=== PATIENT | male | born 1950 | race Caucasian/White ===

== ENCOUNTER → 2018-08-21 12:42 | Outpatient (CLI) | payer MEDICARE, BC, SELFPAY ==
--- NOTE | 2018-08-21 12:50 | CT_ITS ---
STUDY: LOW DOSE CT LUNG CANCER SCREENING REASON FOR EXAM: Male, 67 years old. Current smoker. 50 pack-year history. RADIATION DOSAGE (If Supplied By Facility): CTDIvol = ( 1.70 ) mGy, DLP = ( 55.52 ) mGycm TECHNIQUE: No contrast was administered. Low dose technique was utilized (average mAS-38 and kVp 120). 1.25 mm axial source images with a slice interval of 1.25-mm were reconstructed in lung windows. 2.5 mm axial source images with a slice interval of 2.5-mm were reconstructed in lung windows. 5.0 mm axial source images with a slice interval of 5.0-mm were reconstructed in soft tissue windows. Nodule measured using lung windows on PACS and/or independent workstation with automated measurement of minimum and maximum diameter. Nodule measurement reported as average diameter rounded to the nearest whole number. Growth is defined as an increase ins size of greater than 1.5 mm. COMPARISON: None. NODULES: Total lung nodules (excluding granulomas): 0 Emphysema: There are diffuse emphysematous changes throughout the lungs. Endobronchial lesion: None Aorta: Minimal atherosclerotic changes of the thoracic aorta without aneurysm. Coronary arteries: There are coronary artery calcifications. Heart: The heart is normal in size. Pulmonary artery: Normal Mediastinal nodes: There is no significant mediastinal lymphadenopathy. Other chest and abdominal findings: There are degenerative changes of the lower thoracic spine. CT/Low Dose CT Lung Screening IMPRESSION: Lung-RADS category 1 - Continue annual screening with LDCT in 12 months. IMPORTANT NOTES FOR USE: ACR Lung-RADS Version 1.0 Assessment Categories Release Date: February 04, 2014 Category: Coded 0-4 bases on nodule(s) with highest degree of suspicion. Negative screen is defined as categories 1 and 2; a positive screen is defined as categories 3 and 4. Category 3 and 4A nodules that are unchanged on interval CT should be coded as category 2, and individuals returned to screening in 12 months. Category 4X: Category 3 or 4 nodules with additional imaging findings that increase the suspicion of lung cancer, such as spiculation, GGN that doubles in size in 1 year, enlarged lymph notes, etc. Category Modifiers: S (significant finding unrelated to lung cancer) and C (prior history of treated lung cancer) may be added to the 0-4 Lung-RADS Electronically Signed: Albert Anders DO at 19:23 EST Tel [phone], Service support ,
== END ==
PROVIDERS: Family Provider Family Medicine; PCP Family Medicine; Referring Provider Family Medicine; Visit Provider Family Medicine
DX: F17.210 Nicotine dependence, cigarettes, uncomplicated (principal); Z12.2 Encounter for screening for malignant neoplasm of respiratory organs
CPT/HCPCS: G0297

== ENCOUNTER → 2019-11-16 | Outpatient (CLI) | payer MEDICARE, BC, SELFPAY ==
--- NOTE | 2019-11-16 12:45 | CT_ITS ---
STUDY: LOW DOSE CT LUNG CANCER SCREENING REASON FOR EXAM: Male, 69 years old. 1PPD X 40+ YEARS. EMPHYSEMA RADIATION DOSAGE (If Supplied By Facility): CTDIvol = ( 1.70 ) mGy, DLP = ( 59.55 ) mGycm TECHNIQUE: No contrast was administered. Low dose technique was utilized (average mAS-38 and kVp 120). 1.25 mm axial source images with a slice interval of 1.25-mm were reconstructed in lung windows. 2.5 mm axial source images with a slice interval of 2.5-mm were reconstructed in lung windows. 5.0 mm axial source images with a slice interval of 5.0-mm were reconstructed in soft tissue windows. Nodule measured using lung windows on PACS and/or independent workstation with automated measurement of minimum and maximum diameter. Nodule measurement reported as average diameter rounded to the nearest whole number. Growth is defined as an increase ins size of greater than 1.5 mm. COMPARISON: 08/21/2018 NODULES: Total lung nodules (excluding granulomas): 0 Emphysema: Hyperinflation with moderate emphysematous changes. Endobronchial lesion: None Aorta: Minimal atherosclerosis and tortuosity. Coronary arteries: Atherosclerotic calcifications of the LAD. Heart: Normal size Pulmonary artery: Unremarkable for unopacified technique. Mediastinal nodes: No mediastinal adenopathy. Other chest and abdominal findings: There are degenerative changes of the thoracic spine with multilevel spondylosis. Atherosclerosis of the upper abdominal aorta including origins of the renal arteries. CT/Low Dose CT Lung Screening IMPRESSION: Lung-RADS category 1 - Continue annual screening with LDCT in 12 months. Stable exam. IMPORTANT NOTES FOR USE: ACR Lung-RADS Version 1.0 Assessment Categories Release Date: February 04, 2014 Category: Coded 0-4 bases on nodule(s) with highest degree of suspicion. Negative screen is defined as categories 1 and 2; a positive screen is defined as categories 3 and 4. Category 3 and 4A nodules that are unchanged on interval CT should be coded as category 2, and individuals returned to screening in 12 months. Category 4X: Category 3 or 4 nodules with additional imaging findings that increase the suspicion of lung cancer, such as spiculation, GGN that doubles in size in 1 year, enlarged lymph notes, etc. Category Modifiers: S (significant finding unrelated to lung cancer) and C (prior history of treated lung cancer) may be added to the 0-4 Lung-RADS Electronically Signed: Tawanda Swanson MD (Brooks) at 11:27 EST , Service support ,
== END | disposition home or self-care (01) ==
LOC: CT 12:42
PROVIDERS: PCP Family Medicine; Referring Provider Family Medicine; Visit Provider Family Medicine
DX: F17.210 Nicotine dependence, cigarettes, uncomplicated (principal); Z12.2 Encounter for screening for malignant neoplasm of respiratory organs
CPT/HCPCS: G0297

== ENCOUNTER 2019-12-04 05:23 | Day surgery (SDC) | payer MEDICARE, BC, SELFPAY ==
--- NOTE | 2019-11-22 09:28 | HP_ITS ---
Intake Vital Signs 11/22/19 BMI 20.0 11/22/19 Height 5 ft 10 in 11/22/19 Weight: 142 lb 11/22/19 BMI 20.3 11/22/19 BP 160/81 H 11/22/19 Blood Pressure Location Rt brachial 11/22/19 Position Sitting 11/22/19 Respiration 18 11/22/19 Pulse 75 11/22/19 Pulse Source Monitor 11/22/19 Temp 98.0 F 11/22/19 Temp Source Oral 11/22/19 Pulse Oximetry (%) 98 11/22/19 Oxygen Delivery Method room air Intake Visit Reasons: Hernia Chief Complaint: right inguinal hernia Cylinder Tester Required: No Accompanied by: Is patient in pain?: No Allergies Sulfa (Sulfonamide Antibiotics) Allergy (Verified 11/22/19 09:10) Angioedema Medications Multivit-Min/FA/Lycopene/Lut [Centrum Silver Tablet] 1 ea PO DAILY 01/15/15 [History Confirmed 11/22/19] tamsulosin 0.4 mg capsule 0.4 mg PO DAILY #30 cap 11/22/19 [Rx Confirmed 11/22/19] PFSH Medical History Arthritis (Acute) History of back problems (Acute) Surgical History (Updated 11/22/19 @ 09:04 by Pauly Hart) History of aortic aneurysm repair (Acute) History of spinal surgery (Acute) Family History (Updated 11/22/19 @ 09:05 by Pauly Hart) Mother Breast cancer Sister Diabetes Social History (Updated 11/22/19 @ 09:28 by Feroz Luz MD) Smoking Status: Current every day smoker alcohol intake: current substance use type: does not use HPI HPI HPI: MOODY BLOUNT, is a 69 M who presents to the office today for HPI HPI Surgical H&P: Yes HPI: MOODY BLOUNT, is a 69 M who presents to the office today for surgical consultation regarding a progressively enlarging right inguinal hernia. The patient is referred by his primary care physician Dr. Caitlyn Monroy and a written copy of my surgical consult recommendations will return to him. The patient has had a severe episode of coughing about 6 months ago. This was a complication of bronchitis complicated by his COPD and emphysema complicated by his ongoing cigarette smoking. It is of note that despite discussion with him today he does not have an interest in ceasing. He noted the right groin bulge. He is still able to reduce it. He has not previously had any abdominal surgery. He has not previously had any inguinal hernia repairs. On November 16, 2019 the patient had a lung CT scan because of his [id number] history of smoking and emphysema. That CT was interpreted as a lung RADS category 1 The patient does have nocturia at least once nightly ROS General General: No weight change, appetite, fatigue, colon cancer, breast cancer or weakness HEENT HEENT: No difficulty swallowing, eye injury, eye surgery, swollen glands or hoarseness Endo Endocrine: No thyroid disease, diabetes mellitus, thyroid cancer, Hair loss, heat intolerance or cold intolerance Skin Skin: No rash or changing moles Breast Breast: No left breast lump, right breast lump, nipple discharge, breast pain, abnormal mammogram, abnormal US or breast enlargement Musc Musculoskeletal: Yes back problems and arthritis; no rheumatoid arthritis, gout or joint pain Cardio Cardiovascular: No murmur, pacemaker, heart disease, atrial fibrillation, high blood pressure, heart attack, heart stent, palpitations, shortness of breat with exertion or chest pain Psych Psychiatric: No depression, anxiety or hearing voices Resp Respiratory: No shortness of breath, No sleep apnea, Yes cough, No COPD, No asthma, No emphysema, No wheezing Gastro Gastrointestinal: No abdominal pain, No nausea or vomiting, No diarrhea, No constipation, No blood in stool, No acid reflux, No hemorrhoids, No ulcers, No gallbladder problem, No black,tarry stools Karl Hematologic: No blood thinners, No blood disorders, No bleeding, No anemia, No blood clots Neuro Neurologic: No system reviewed and no additional complaints, except as docu, No as per HPI, No abnormal walking, No abnormal hearing, No abnormal movements, No abnormal speech, No behavioral changes, No burning sensations, No confusion, No seizure-like activity, No unsteadiness, No dizziness, No localized weakness, No frequent falls, No headache(s), No lack of coordination, No loss of vision, No memory loss, Yes numbness, No other visual disturbances, No radiating pain, No restless legs, No sensory deficit, No fainting, Yes tingling, No tremor(s), No weakness, No other Exam Const General: cooperative, comfortable, no acute distress Nutritional Appearance: average body habitus Orientation: alert, awake Other: Patient appears older than stated age Chest Breast Palpation: No nipple discharge Other: Notably increased anterior posterior diameter Resp Effort & Inspection: normal respiratory effort Auscultation: clear to auscultation bilaterally Cardio Rate: regular rate Rhythm: regular rhythm Heart Sounds: no murmurs GI Palpation: soft, no hepatosplenomegaly Auscultation: normal bowel sounds Other: Testicles are descended without mass, left groin has a palpable external ring. The right groin has an obvious sizable inguinal hernia. It is still reducible. Skin General: no rashes or lesions noted Neuro Cognition: normal cognition Extrem General: no calf tenderness bilaterally Psych Affect: normal affect Assessment & Plan Problems 1. Inguinal hernia of right side without obstruction or gangrene K40.90 Plan I have discussed various treatment options for the patient. He has ongoing tobacco use and COPD. He has chronic cough. I believe that he is at increased risk for hernia repair failure and recurrence. I would prefer performing a laparoscopic right inguinal hernia repair. I would be better able to oversized the mesh if indicated. I have discussed the technique, benefit, risk, alternatives. As noted I can palpate a slightly open left inguinal ring. We have discussed the potential proceeding on with a laparoscopic left inguinal hernia repair at the same setting if one is identified laparoscopically. He is aware of the technique, benefit, risks, alternatives. It has been compared and contrasted to open procedures with and without mesh. I have vigorously encouraged the patient to cease his tobacco use Because of his nocturia x1 we will initiate him on tamsulosin 0.4 mg nightly preoperatively. He is aware of the potential for postoperative urinary retention. He has had an opportunity to ask and have questions answered. We will schedule and proceed at his discretion. Cc: Dr. Caitlyn Luz M.D., F.A.C.S. Medications New: tamsulosin (Flomax) 0.4 mg PO DAILY 30 caps 0RF Coding Level of Care Code 53987 Diagnoses Inguinal hernia of right side without obstruction or gangrene K40.90 11/22/19 0928 <Electronically signed by Feroz rogers MD> Date _ Feroz Luz MD I have re-examined the patient. There are no clinical changes since date of exam.
--- NOTE | 2019-11-29 13:16 | EKG12_ITS ---
Test Reason : PRE OP Blood Pressure : / mmHG Vent. Rate : 066 BPM Atrial Rate : 066 BPM P-R Int : 182 ms QRS Dur : 080 ms QT Int : 370 ms P-R-T Axes : 077 055 076 degrees QTc Int : 387 ms Normal sinus rhythm Normal ECG Confirmed by ESDRAS SANDOVAL, KIAN ([id number]), editor news JESUS OLSON ([id number]) on 12/03/2019 2:04:42 PM Referred By: Feroz Luz Confirmed By:ASHLEE DEWITT MD
[2019-11-29 14:42] LABS: Hematocrit 45.8 % (40-54); Mean Corp Hgb Conc 32.8 g/dL (32-36); Mean Corpuscular Hgb 30.2 pg (27.0-32.0); Mean Corpuscular Volume 92.3 fL (80-94); Mean Platelet Vol. 9.4 fl (6.2-12.0); Platelet Count 257 K/mm3 (150-450); RBC Distribution Width CV 13.5 % (11.6-14.6); RBC Distribution Width SD 45.4 fl (35.1-43.9); Red Blood Count 4.96 M/mm3 (4.6-6.2); White Blood Count 9.7 K/mm3 (4.4-11.0)
[2019-11-29 15:07] LABS: Anion Gap 4 (5-15); BUN 18 mg/dL (7-18); BUN/Creat Ratio 21.1 RATIO (10-20); Calcium,Total 9.2 mg/dL (8.5-10.1); Chloride 109 mmol/L (98-107); Creatinine, Serum 0.86 mg/dL (0.70-1.30); EST Glomerular Filtration Rate 95 mL/min (>60); Est Glom Filt Rate - Afr Amer 115 mL/min (>60); Glucose 82 mg/dL (74-106); Potassium 4.1 mmol/L (3.5-5.1); Sodium Level 140 mmol/L (136-145)
[2019-12-04 05:54] VITALS: BP 103/66; PULSE 74; RESP 14; TEMP 37.4; O2SAT 97
--- NOTE | 2019-12-04 06:00 | PCM.DC.GS ---
Discharge Diet: Light diet - advance as tolerated - if you have questions about your diet instructions, please talk to you doctor. Discharge Activity: May Not Drive - for 3-5 days or while taking narcotic pain medicine. May shower in (days): 1 Lifting Restrictions: 10 pounds Call your doctor if your incision/area has: Continuous Slow Oozing, Sudden Increased Bleeding, Increased Pain/ Swelling, Increased Redness, Foul Smelling Discharge Call your doctor if you observe: Fever of 101 or Higher Suture Line Care: Avoid Pulling/Pushing, Avoid Pinching/Bending Additional Dressing/Incision Instructions:: Change or remove dressing in 4 days. Leave steri-strips in place for 1 week. Allergies/Adverse Reactions: Allergies Sulfa (Sulfonamide Antibiotics) Allergy (Verified 12/04/19 05:53) Angioedema Medications to take at Discharge Multivit-Min/FA/Lycopene/Lut [Centrum Silver Tablet] 1 ea PO DAILY 01/15/15 Loratadine 10 mg PO DAILY 11/27/19 Naproxen Sod/Diphenhydramine [Aleve Pm Caplet] 1 ea PO QHS PRN PRN 11/27/19 Tamsulosin HCl 0.4 mg PO QHS 11/27/19 Orders to be completed after discharge: 12 Lead EKG [[facility]] Time Frame: 11/27/19, Facility: [facility], Location: Cardiovascular Services Basic Metabolic Profile (BMP) Time Frame: 11/27/19, Facility: [facility], Location: Laboratory CBC-Complete Blood Cnt No Diff Time Frame: 11/27/19, Facility: [facility], Location: Laboratory Primary Care Physician: Caitlyn Monroy MD [Primary Care Provider] - Test Results: Test results from this visit will be discussed in further detail at your follow-up appointment, if applicable. Please Follow Up With: Feroz Luz MD - [phone] When: Call to make an appointment to be seen in about 10 days.
[2019-12-04] MEDS: Lactated Ringers 1,000 ML 100 ML IV (06:05)
[2019-12-04] MEDS: Cefazolin 2 GM in 0.9% Normal Saline 100 ML IV (07:15)
[2019-12-04] MEDS: Bupivacaine Mpf 0.5% 30 ML VIAL (08:21)
--- NOTE | 2019-12-04 08:26 | OP.PCM_ITS ---
Problem List (1) Inguinal hernia of right side without obstruction or gangrene Status: Acute Report of Operation Date of Procedure: 12/04/19 Pre-Operative Diagnosis: Right inguinal hernia Post-Operative Diagnosis: Direct and indirect right inguinal hernias Surgery/Procedure Performed:: Laparoscopic right inguinal herniorrhaphy. Bard 3D max extra-large right. Lot number [id number]. Reference #[id number]. Expiry da te 06/06/2024 Description of Surgical Findings:: Timeout and informed consent was obtained. 69 old gent was taken out from placement table underwent general endotracheal intubation anesthesia. Ancef 2 g given intravenously preoperatively. The abdomen sterilely prepped and draped. 0.5% Marcaine was used as local anesthetic. Skin sites were pre-anesthetized. Throughout the procedure total 30 cc was used. A infraumbilical incision was created holding sutures of 0 Vicryl placed varies needle inserted could not get insufflation so then I again direct access to the peritoneum opened the peritoneum and put the telemeter trocar. The abdomen was insufflated with CO2 to a pressure of 10 mm direct pressure. 10 mm laparoscope inserted the abdomen was carefully inspected no evidence of any trocar related injuries. Under direct physician 5 mm ports were placed in the right left lower quadrant. The left groin was noted to be solid. The right groin had evidence of both a large direct right inguinal hernia and a smaller indirect right inguinal hernia. A ileal nerve block was performed with the local under laparoscopic visualization. The peritoneum superior lateral to the internal ring was incised carried medially. The peritoneum was then aggressively dissected free. The direct space indirect area and femoral area completely dissected free. A extra-large Bard 3D max mesh was placed so as to cover the defect area. I was able to position it to generously cover the entire right groin area. Excellent positioning was achieved. It was secured laterally superiorly and medially with secure strap. I was very pleased with the positioning. The peritoneum was then approximated to itself using secure strap and hemo-lock clips. Complete obliteration of the mesh was achieved. Trochars were removed under visualization the abdomen was allowed to deflate of the CO2 the fascia at the umbilicus approximated with interrupted 0 Vicryl [id number] suture skin edges approximated opted for Monocryl subdermal stitches Steri-Strips and Telfa and OpSite dressings applied sponge and instrument and needle counts were reported to the surgeon to be correct Specimens none. Drains none. Blood loss minimal. Feroz Luz M.D., F.A.C.S. Type of Anesthesia:: General Anesthesiologist: Trevor Almaguer
[2019-12-04 08:37] VITALS: BP 103/66; BP 125/75; PULSE 64; RESP 14; TEMP 36.4; O2SAT 97
[2019-12-04 08:45] VITALS: BP 103/66; BP 133/74; PULSE 60; RESP 16; O2SAT 93
[2019-12-04 09:01] VITALS: BP 103/66; BP 133/73; PULSE 68; RESP 16; TEMP 36.5; O2SAT 98
[2019-12-04 09:44] VITALS: BP 103/66
[2019-12-04] MEDS: HYDROcodone Bitartrate/Apap 5/325 Tablet PO (10:20)
[2019-12-04 10:28] VITALS: BP 103/66; BP 139/77; PULSE 60; RESP 16; TEMP 36.4; O2SAT 97
== END 2019-12-04 10:46 | disposition home or self-care (01) ==
LOC: SDC 05:24 → AC 05:25
PROVIDERS: PCP Family Medicine; Referring Provider Surgery; Visit Provider Surgery
PROC: (CPT 49650; principal; 2019-12-04 06:55)
DX: K40.90 Unilateral inguinal hernia, without obstruction or gangrene, not specified as recurrent (principal); M19.90 Unspecified osteoarthritis, unspecified site; J43.9 Emphysema, unspecified; F17.210 Nicotine dependence, cigarettes, uncomplicated
CPT/HCPCS: 00840; 49650; 36415; 80048; 85027; 93005; J7120; C1781; J2405

== ENCOUNTER → 2020-10-31 11:33 | Outpatient (CLI) | payer MEDICARE, BC, SELFPAY ==
[2020-10-31 15:54] LABS: Cholesterol 190 mg/dL (200); High Density Lipoprotein 87 mg/dL; PSA,Total - Annual Screen 3.56 ng/mL (0.00-4.00); Triglycerides 51 mg/dL; Very Low Density Lipoprotein 10 mg/dL (5-40)
== END ==
PROVIDERS: PCP Family Medicine; Referring Provider Family Medicine; Visit Provider Family Medicine
DX: Z00.00 Encounter for general adult medical examination without abnormal findings (principal); Z12.5 Encounter for screening for malignant neoplasm of prostate
CPT/HCPCS: 36415; 80061; 84153; G0103

== ENCOUNTER → 2020-11-17 14:45 | Outpatient (CLI) | payer MEDICARE, BC, SELFPAY ==
--- NOTE | 2020-11-17 14:46 | CT_ITS ---
STUDY: LOW DOSE CT LUNG CANCER SCREENING REASON FOR EXAM: Male, 70 years old. Long history of smoking. Screening for lung cancer. RADIATION DOSAGE (If Supplied By Facility): CTDIvol = ( 2.01 ) mGy, DLP = ( 76.25 ) mGycm TECHNIQUE: No contrast was administered. Low dose technique was utilized (average mAS-38 and kVp 120). 1.25 mm axial source images with a slice interval of 1.25-mm were reconstructed in lung windows. 2.5 mm axial source images with a slice interval of 2.5-mm were reconstructed in lung windows. 5.0 mm axial source images with a slice interval of 5.0-mm were reconstructed in soft tissue windows. Nodule measured using lung windows on PACS and/or independent workstation with automated measurement of minimum and maximum diameter. Nodule measurement reported as average diameter rounded to the nearest whole number. Growth is defined as an increase ins size of greater than 1.5 mm. COMPARISON: 11/16/2019 NODULES: There is hyperinflation of the lungs consistent with chronic obstructive lung disease (COPD). Mild emphysema seen in both lungs more prominent in the upper lobes. There are no suspicious lung nodules There are no endobronchial lesions. There is no demonstrated pleural abnormality. Normal heart and pericardium. Normal mediastinum. Normal hilar regions. Normal unenhanced pulmonary arteries. Normal aorta arch and descending thoracic aorta. Normal osseous structures. There is a single stone in the gallbladder measures approximately [address]/Low Dose CT Lung Screening IMPRESSION: Lung-RADS category 2. COPD and emphysema unchanged from yesterday. Cholelithiasis. Recommendation: Routine screening CT scan in one year. IMPORTANT NOTES FOR USE: ACR Lung-RADS Version 1.0 Assessment Categories Release Date: February 04, 2014 Category: Coded 0-4 bases on nodule(s) with highest degree of suspicion. Negative screen is defined as categories 1 and 2; a positive screen is defined as categories 3 and 4. Category 3 and 4A nodules that are unchanged on interval CT should be coded as category 2, and individuals returned to screening in 12 months. Category 4X: Category 3 or 4 nodules with additional imaging findings that increase the suspicion of lung cancer, such as spiculation, GGN that doubles in size in 1 year, enlarged lymph notes, etc. Category Modifiers: S (significant finding unrelated to lung cancer) and C (prior history of treated lung cancer) may be added to the 0-4 Lung-RADS Electronically Signed: Susana Saavedra MD at 7:15 EST Tel , Service support ,
== END ==
PROVIDERS: PCP Family Medicine; Referring Provider Family Medicine; Visit Provider Family Medicine
DX: F17.210 Nicotine dependence, cigarettes, uncomplicated (principal); Z12.2 Encounter for screening for malignant neoplasm of respiratory organs
CPT/HCPCS: 71271

== ENCOUNTER 2021-11-25 13:40 | Outpatient (CLI) | payer MEDICARE, BC, SELFPAY ==
--- NOTE | 2021-11-25 13:45 | CT_ITS ---
STUDY: LOW DOSE CT LUNG CANCER SCREENING REASON FOR EXAM: Male, 71 years old. COPD. Patient smoked 1 pack per day for 40 years. RADIATION DOSAGE (If Supplied By Facility): CTDIvol = ( 2.01 ) mGy, DLP = ( 71.73 ) mGycm TECHNIQUE: No contrast was administered. Low dose technique was utilized (average mAS-38 and kVp 120). 1.25 mm axial source images with a slice interval of 1.25-mm were reconstructed in lung windows. 2.5 mm axial source images with a slice interval of 2.5-mm were reconstructed in lung windows. 5.0 mm axial source images with a slice interval of 5.0-mm were reconstructed in soft tissue windows. Nodule measured using lung windows on PACS and/or independent workstation with automated measurement of minimum and maximum diameter. Nodule measurement reported as average diameter rounded to the nearest whole number. Growth is defined as an increase ins size of greater than 1.5 mm. COMPARISON: Comparison is made with prior examination dated 11/17/2020. NODULES: No suspicious nodules are seen. Emphysema: Hyperinflation. Emphysematous changes with centrilobular emphysema more prominent in the upper lobes. Endobronchial lesion: None Aorta: Minimal atherosclerotic calcification of the aortic arch. Coronary arteries: Coronary artery calcification. Heart: Unremarkable Pulmonary artery: Unremarkable Mediastinal nodes: Unremarkable Other chest and abdominal findings: CT/Low Dose CT Lung Screening IMPRESSION: Lung-RADS category 2 - Continue annual screening with LDCT in 12 months. IMPORTANT NOTES FOR USE: ACR Lung-RADS Version 1.1 Assessment Categories Release Date: 2018 Category: Coded 0-4 bases on nodule(s) with highest degree of suspicion. Negative screen is defined as categories 1 and 2; a positive screen is defined as categories 3 and 4. Category 3 and 4A nodules that are unchanged on interval CT should be coded as category 2, and individuals returned to screening in 12 months. Category 4X: Category 3 or 4 nodules with additional imaging findings that increase the suspicion of lung cancer, such as spiculation, GGN that doubles in size in 1 year, enlarged lymph notes, etc. Category Modifiers: S (significant finding unrelated to lung cancer) Electronically Signed: Umberto Carlton MD at 15:10 EST ,
== END 2021-11-25 23:59 | disposition home or self-care (01) ==
LOC: CT 13:42
PROVIDERS: PCP Family Medicine; Referring Provider Family Medicine; Visit Provider Family Medicine
DX: J44.1 Chronic obstructive pulmonary disease with (acute) exacerbation (principal); Z87.891 Personal history of nicotine dependence
CPT/HCPCS: 71271

== ENCOUNTER 2023-01-04 14:41 | Outpatient (CLI) | payer MEDICARE, BC, SELFPAY ==
[2023-01-04 19:04] LABS: ALB/GLOB Ratio 1.1 RATIO (0.9-2.4); AST(SGOT) 31 U/L (15-37); Alanine Aminotransfer ALT/SGPT 38 U/L (16-61); Albumin, Serum 3.8 g/dL (3.2-5.0); Alkaline Phosphatase 55 U/L (45-117); Anion Gap 8 (5-15); BUN 19 mg/dL (7-18); BUN/Creat Ratio 24.5 RATIO (10-20); Calcium,Total 8.9 mg/dL (8.5-10.1); Chloride 106 mmol/L (98-107); Creatinine, Serum 0.78 mg/dL (0.70-1.30); EST Glomerular Filtration Rate 105 mL/min (>60); Est Glom Filt Rate - Afr Amer 127 mL/min (>60); Globulin 3.6 g/dL (2.2-4.2); Glucose 71 mg/dL (74-106); PSA,Total - Annual Screen 3.67 ng/mL (0.00-4.00); Potassium 3.9 mmol/L (3.5-5.1); Protein, Total 7.4 g/dL (6.4-8.2); Sodium Level 138 mmol/L (136-145); Thyroid Stim Hormone (TSH) 1.88 uIU/mL (0.358-3.74)
== END 2023-01-04 23:59 | disposition home or self-care (01) ==
LOC: MFPLAB 14:43
PROVIDERS: PCP Family Medicine; Referring Provider Family Medicine; Visit Provider Family Medicine
DX: Z00.00 Encounter for general adult medical examination without abnormal findings (principal)
CPT/HCPCS: 36415; 80053; 84153; 84443; G0103

== ENCOUNTER → 2023-01-13 | Outpatient (CLI) | payer MEDICARE, BC, SELFPAY ==
--- NOTE | 2023-01-13 15:55 | CT_ITS ---
STUDY: LOW DOSE CT LUNG CANCER SCREENING REASON FOR EXAM: Male, 72 years old. SCREENING. The patient smoked 1 pack per day for 50 years. RADIATION DOSAGE (If Supplied By Facility): CTDIvol = ( 2.01 ) mGy, DLP = ( 72.48 ) mGycm TECHNIQUE: No contrast was administered. Low dose technique was utilized (average mAS-38 and kVp 120). 1.25 mm axial source images with a slice interval of 1.25-mm were reconstructed in lung windows. 2.5 mm axial source images with a slice interval of 2.5-mm were reconstructed in lung windows. 5.0 mm axial source images with a slice interval of 5.0-mm were reconstructed in soft tissue windows. COMPARISON: Comparison is made with prior study dated November 25, 2021. NODULES: No suspicious nodules are seen. Emphysema: Hyperinflation and emphysematous changes with centrilobular emphysema in the upper lobes. Endobronchial lesion: None Aorta: Mild atherosclerotic calcific plaques of the aortic arch. CORONARY ARTERIES: Coronary artery calcification is seen. Heart: Unremarkable Pulmonary artery: Unremarkable Mediastinal nodes: Small benign-appearing mediastinal lymph nodes. Other chest and abdominal findings: CT/Low Dose CT Lung Screening IMPRESSION: Lung-RADS category 2 - Continue annual screening with LDCT in 12 months. IMPORTANT NOTES FOR USE: ACR Lung-RADS Version 1.1 Assessment Categories Release Date: 2018 Category: Coded 0-4 bases on nodule(s) with highest degree of suspicion. Negative screen is defined as categories 1 and 2; a positive screen is defined as categories 3 and 4. Category 3 and 4A nodules that are unchanged on interval CT should be coded as category 2, and individuals returned to screening in 12 months. Category 4X: Category 3 or 4 nodules with additional imaging findings that increase the suspicion of lung cancer, such as spiculation, GGN that doubles in size in 1 year, enlarged lymph notes, etc. Category Modifiers: S (significant finding unrelated to lung cancer) Electronically Signed: Umberto Carlton MD at 14:21 EDT ,
== END | disposition home or self-care (01) ==
LOC: CT 15:46
PROVIDERS: PCP Family Medicine; Referring Provider Family Medicine; Visit Provider Family Medicine
DX: Z87.891 Personal history of nicotine dependence (principal)
CPT/HCPCS: 71271

== ENCOUNTER → 2024-01-06 | Outpatient (CLI) | payer MEDICARE, BC, SELFPAY | END | disposition home or self-care (01) | LOC: MTLAB 11:42 | PROVIDERS: PCP Family Medicine; Referring Provider Family Medicine; Visit Provider Family Medicine | DX: Z12.5 Encounter for screening for malignant neoplasm of prostate (principal) | CPT/HCPCS: 36415; 84153; G0103 ==

== ENCOUNTER → 2024-01-23 | Outpatient (CLI) | payer MEDICARE, BC, SELFPAY ==
--- NOTE | 2024-01-23 17:41 | CT_ITS ---
STUDY: LOW DOSE CT LUNG CANCER SCREENING REASON FOR EXAM: Male, 73 years old. screening for lung cancer RADIATION DOSAGE (If Supplied By Facility): CTDIvol = ( 2.27 ) mGy, DLP = ( 74.95 ) mGycm TECHNIQUE: No contrast was administered. Low dose technique was utilized (average mAS-38 and kVp 120). 1.25 mm axial source images with a slice interval of 1.25-mm were reconstructed in lung windows. 2.5 mm axial source images with a slice interval of 2.5-mm were reconstructed in lung windows. 5.0 mm axial source images with a slice interval of 5.0-mm were reconstructed in soft tissue windows. COMPARISON: 01/13/2023 Emphysema: Mild bilateral apical scarring. Mild emphysema. No noncalcified nodule or mass. Endobronchial lesion: There is a small (5 mm) endobronchial lesion within the medial branching bronchus arising from the proximal apicoposterior bronchus on image 83 and 84. Bronchoscopy may be useful. Aorta: Some calcified plaque in the aortic arch but no thoracic aortic aneurysm. CORONARY ARTERIES: Coronary artery calcification is seen. Heart: No cardiomegaly. Pulmonary artery: Normal Mediastinal nodes: Normal Other chest and abdominal findings: Mild bilateral gynecomastia. CT/Low Dose CT Lung Screening IMPRESSION: Lung-RADS category 4A - Screening at 3 months with LDCT or evaluation with PET/CT may be used. IMPORTANT NOTES FOR USE: ACR Lung-RADS Version 1.1 Assessment Categories Release Date: 2018 Category: Coded 0-4 bases on nodule(s) with highest degree of suspicion. Negative screen is defined as categories 1 and 2; a positive screen is defined as categories 3 and 4. Category 3 and 4A nodules that are unchanged on interval CT should be coded as category 2, and individuals returned to screening in 12 months. Category 4X: Category 3 or 4 nodules with additional imaging findings that increase the suspicion of lung cancer, such as spiculation, GGN that doubles in size in 1 year, enlarged lymph notes, etc. Category Modifiers: S (significant finding unrelated to lung cancer) Electronically Signed: Germán You MD at 0:27 EDT ,
== END | disposition home or self-care (01) ==
LOC: CT 17:38
PROVIDERS: PCP Family Medicine; Referring Provider Family Medicine; Visit Provider Family Medicine
DX: Z12.2 Encounter for screening for malignant neoplasm of respiratory organs (principal); F17.210 Nicotine dependence, cigarettes, uncomplicated
CPT/HCPCS: 71271

== ENCOUNTER → 2024-09-04 | Outpatient (CLI) | payer MEDICARE, BC, SELFPAY ==
[2024-09-05 12:09] LABS: PSA, Free 1.17 ng/mL; PSA, Free % 15.6 % (.)
== END | disposition home or self-care (01) ==
LOC: LAB 10:12
PROVIDERS: PCP Family Medicine; Referring Provider Urology; Visit Provider Urology
DX: R97.20 Elevated prostate specific antigen [PSA] (principal)
CPT/HCPCS: 36415; 84153; 84154

== ENCOUNTER → 2025-02-05 | Outpatient (CLI) | payer MEDICARE, BC, SELFPAY ==
--- NOTE | 2025-02-05 16:39 | CT_ITS ---
PROCEDURE: LOW DOSE CT LUNG SCREENING (CTLUNGSCREEN), 02/05/2025 REASON FOR EXAM: HX NICOTINE DEPENDENCE TECHNIQUE: Low dose CT (LDCT) chest was performed without contrast. Multiplanar reformats and MIP reconstructions were generated. RADIATION DOSE SUMMARY: CTDlvol: 3.02 mGy DLP: 115.13 mGycm One or more dose reduction techniques were used (e.g., Automated exposure control, adjustment of the mA and/or kV according to patient size, use of iterative reconstruction technique). COMPARISON: 01/23/2024 FINDINGS: Note that evaluation of the vasculature, jadon, and soft tissues is limited in the absence of IV contrast. Heart/pericardium: Moderate multivessel coronary atherosclerosis and/or stents. Trace aortic annular calcification. Aorta: Trace atherosclerosis.. Pulmonary arteries: Unremarkable. Lymph nodes: Unremarkable. Lungs/pleura: Emphysema. New spiculated nodule in the medial subpleural superior segment of the RIGHT lower lobe measuring 2.8 x 1.8 cm (series 2, image 102). New RIGHT apical nodules up to 9 x 7 mm (images 42 and 44). New 5 x 5 mm LEFT apical nodule (image 45). New subpleural LEFT upper lobe nodule, 6 x 3 mm (image 50). New spiculated nodule in the RIGHT middle lobe measuring 2.9 x 1.5 cm (image 164). Fissural likely intrapulmonary lymph node on the LEFT. New RIGHT upper lobe nodule measuring 6 x 6 mm (image 109). Similar posterior subpleural RIGHT lower lobe nodule measuring 6 x 5 mm (image 153). Airways: Unremarkable. Chest wall: Gynecomastia.. Similar punctate metallic foci in the RIGHT posterolateral meningeal lower chest wall. Upper abdomen: Similar 1.2 cm hypodensity in the LEFT hepatic dome, borderline too small to characterize. Cholelithiasis. Colonic diverticulosis. Musculoskeletal: Demineralization. Mild spondylosis. Mild scoliosis may be positional.. CT/Low Dose CT Lung Screening IMPRESSION: 1. Emphysema with multiple new nodules up to 2.3 cm average axial diameter, lar gest two with spiculation which is a suspicious feature. Tissue sampling should be considered. Additional management options as below. 2. Lung-RADS category: 4XS (very suspicious, >15% chance of malignancy); recomm end ct chest with contrast, PET/CT, and/or tissue sampling if solid component ?8 mm. For new large nodules that develop on an [facility] screening CT, a 1 month LDCT may be recommended to address potentially infectious or inflammatory conditions. 3. Other clinically significant or potentially significant non-lung cancer find ings: Coronary arterial calcification moderate or severe. 4. Additional description as above. Recommendations per [employer]. Lung CT Screening Reporting and Data System (Lung-RADS) v. 202 Reading Location: [id number]
== END | disposition home or self-care (01) ==
LOC: CT 16:37
PROVIDERS: PCP Family Medicine; Referring Provider Internal Medicine Pulmonary Disease; Visit Provider Internal Medicine Pulmonary Disease
DX: Z87.891 Personal history of nicotine dependence (principal)
CPT/HCPCS: 71271

== ENCOUNTER 2025-02-19 09:58 | Outpatient (CLI) | payer MEDICARE, BC, SELFPAY ==
--- NOTE | 2025-02-19 10:30 | PET_ITS ---
PROCEDURE: PET/CT TUMOR BASE -THIGH INIT 02/19/2025 REASON FOR EXAM: 74 y/o M with SOLITARY PULMONARY NODULE. Multiple new or increased lung nodule seen CT examination 02/05/2025. TECHNIQUE: Following the intravenous administration of radionucleotide, image acquisition on a dedicated PET/CT unit was performed at one hour post injection. A preliminary CT study encompassing the Skull base, neck, chest, abdomen, pelvis, and proximal thighs was performed for purposes of attenuation correction and anatomic localization. The proximal thighs were also included. The patient's blood glucose level was 119 mg/dL (allowable range: 50-180 mg/dL). RADIOPHARMACEUTICAL: 14.05 mCi 18F-FDG (Fluorodeoxyglucose F18) IV was injected into he patient. RADIATION DOSE SUMMARY: Effective Dose: Approximately 7 mSv for a standard whole-body PET scan Organ Doses: Varies by organ, with higher doses typically to the bladder, liver, and brain COMPARISON: COMPARISON FROM CT, PET OR OTHER PERTINENT EXAMS: Chest CT of 02/05/2025.. FINDINGS: Physiologic uptake: There may be expected metabolic uptake within the brain, tongue and floor of the mouth and larynx/vocal cords, heart, jadon (many normal individuals have hilar uptake in less than 3 nodes with mildly avid hilar nodes less than 2.7 SUV), liver and spleen, system, and GI tract and symmetric muscle uptake. FDG AVID AND NON-AVID LESIONS. Reported avid SUV values (g/mL*) are maximum SUV. NECK: There are no significant neck abnormalities. CHEST: Chest wall- There are no significant chest wall abnormalities. Axilla- There are no significant axillary abnormalities. Lung parenchyma- Many of the concerning bilateral lung nodules seen on the recent chest CT show hypermetabolic activity, highly concerning for malignancy. A very medial right lower lobe (also retrocardiac) nodule with SUV max of 6.2; A lateral left upper lobe nodule with SUV max of 4.7; A medial left upper lobe nodule with SUV max of 5.0; Posteromedial right lower lobe nodule with SUV max of 4.5. Mediastinum- There are no significant hilar or mediastinal adenopathy. Pleura- There are no significant pleural abnormalities. ABDOMEN: Cholelithiasis. Stomach- No significant abnormalities. Liver- No significant abnormalities. Spleen- No significant abnormalities. Pancrease- No significant abnormalities. Kidneys- No significant abnormalities. Bowel- Normal bowel activity. Spine- No significant abnormalities. Prominent arterial calcification is seen; no evidence of abdominal aortic aneurysm. PELVIS: Bowel- Normal physiologic bowel activity is identified. Mild sigmoid diverticulosis is noted. Masses- There are no pelvic masses. Bones- Prominent degenerative changes of the spine are seen. With the use of bone window settings, there are no osteolytic or osteoblastic lesions. There are no FDG avid lesions within the visualized portion of the axial skeleton. PET/PET/CT Tumor Base -Thigh Init IMPRESSION: FDG avid- Bilateral pulmonary hypermetabolic lung nodules. Differential diagnosis includ es multifocal lung carcinoma and/or metastatic disease. Other: Mild sigmoid diverticulosis. Cholelithiasis. Please note the low-dose CT scan was performed to facilitate PET image reconstr uction and anatomic localization and does not replace a diagnostic CT. Any diagnostic CT requested and performed at the time of the PET will be reported separately. Reading Location: [place] [id number]
[2025-02-19 15:18] LABS: PSA,Total- Diagnostic 6.39 ng/mL (0.00-4.00)
== END 2025-02-19 23:59 | disposition home or self-care (01) ==
PROVIDERS: PCP Family Medicine; Referring Provider Urology; Visit Provider Internal Medicine Pulmonary Disease
DX: R91.1 Solitary pulmonary nodule (principal); J44.9 Chronic obstructive pulmonary disease, unspecified; R97.20 Elevated prostate specific antigen [PSA]; F17.210 Nicotine dependence, cigarettes, uncomplicated
CPT/HCPCS: 36415; 78815; 84153; A9552

== ENCOUNTER → 2025-04-18 | Outpatient (CLI) | payer MEDICARE, BC, SELFPAY ==
--- NOTE | 2025-04-18 09:46 | CT_ITS ---
EXAM: CT Chest Without Intravenous Contrast CLINICAL INDICATION: SOLITARY PULM NODULE TECHNIQUE: Axial computed tomography images of the chest without intravenous contrast. This CT exam was performed using one or more of the following dose reduction techniques: automated exposure control, adjustment of the mA and/or kV according to patient size, and/or use of iterative reconstruction technique. COMPARISON: PET-CT 02/19/2025, CT low-dose chest 02/05/25 FINDINGS: LUNGS AND PLEURAL SPACES: Lung emphysema. Redemonstration of spiculated nodule in the medial right lower lobe measuring up to 2 8 cm with a decreased density. Stable 5 mm nodule of the lateral left upper lobe. Stable 5 mm of the central right upper lobe. Stable 4 mm nodule of the central right upper lobe. New 6 mm spiculated nodule of the superior segment of the left lower lobe. 3 mm nodule of the right middle lobe, previously 6 mm. No consolidation. No significant effusion. No pneumothorax. HEART: Unremarkable. No cardiomegaly. No significant pericardial effusion. No significant coronary artery calcifications. BONES/JOINTS: Unremarkable. No acute fracture. SOFT TISSUES: Unremarkable. VASCULATURE: Unremarkable. No thoracic aortic aneurysm. LYMPH NODES: Unremarkable. No enlarged lymph nodes. CT/Chest without Contrast IMPRESSION: Mixed improvement since the prior exam on 02/05/2025. Some pulmonary nodules h ave decreased in size or remained stable. However, a new spiculated nodule of the superior segment of the left lower lobe was noted. Reading Location: [facility]
== END | disposition home or self-care (01) ==
PROVIDERS: Referring Provider Internal Medicine Pulmonary Disease; Visit Provider Internal Medicine Pulmonary Disease
DX: R91.1 Solitary pulmonary nodule (principal); J44.9 Chronic obstructive pulmonary disease, unspecified
CPT/HCPCS: 71250

== ENCOUNTER → 2025-05-28 | Outpatient (CLI) | payer MEDICARE, BC, SELFPAY ==
[2025-05-28 11:00] LABS: Hematocrit 44.2 % (40-54); Hemoglobin 14.9 g/dL (13.0-16.5); Immature Granulocytes Count 0.020 X10^3/uL (0.0-0.0); Mean Corp Hgb Conc 33.7 g/dL (32-36); Mean Corpuscular Volume 91.3 fL (80-94); Mean Platelet Vol. 9.0 fl (6.2-12.0); NRBC Flagged by Analyzer 0 % (0-5); Platelet Count 255 K/mm3 (150-450); RBC Distribution Width CV 13.6 % (11.6-14.6); RBC Distribution Width SD 45.7 fl (35.1-43.9); Red Blood Count 4.84 M/mm3 (4.6-6.2); White Blood Count 7.0 K/mm3 (4.4-11.0)
[2025-05-28 12:12] LABS: CRP 5.66 mg/L (0.0-3.0)
[2025-05-29 14:08] LABS: ANTINUCLEAR ANTIBODIES DIRECT Negative (Negative); Anti-dsDNA Ab <1 IU/mL (0-9); SJOGREN'S Anti-SS-A test < 0.2 AI (0.0-0.9); SJOGREN'S Anti-SS-B test < 0.2 AI (0.0-0.9)
[2025-05-30 06:08] LABS: Angiotensin Convert Enzyme 25 U/L (14-82); Anti-Smooth Muscle ABS 12 Units (0-19); Cytoplasmic Ab (C-ANCA) <1:20 titer (Neg:<1:20); Perinuclear Ab (P-ANCA) <1:20 titer (Neg:<1:20)
== END | disposition home or self-care (01) ==
LOC: LAB.FUTURE 09:35 → LAB 09:35
PROVIDERS: Referring Provider Internal Medicine Pulmonary Disease; Visit Provider Internal Medicine Pulmonary Disease
DX: R97.20 Elevated prostate specific antigen [PSA] (principal); R91.1 Solitary pulmonary nodule
CPT/HCPCS: 36415; 82164; 83516; 85025; 85652; 86037; 86038; 86140; 86200; 86225; 86235; 86762

== ENCOUNTER → 2025-09-02 | Outpatient (CLI) | payer MEDICARE, BC, SELFPAY ==
[2025-09-04 13:08] LABS: PSA, Free 0.80 ng/mL; PSA, Free % 14.4 % (.); PSA, Total Ultrasensitive 5.540 ng/mL (0.000-4.000)
== END | disposition home or self-care (01) ==
LOC: LAB 14:09
PROVIDERS: Referring Provider Urology; Visit Provider Urology
DX: R97.20 Elevated prostate specific antigen [PSA] (principal)
CPT/HCPCS: 36415; 84153; 84154